=== PATIENT | female | born 1945 | race Caucasian/White ===

== ENCOUNTER → 2020-11-25 | Outpatient (CLI) | payer OTHER ==
[~2020-11-25] MED LIST: FUROSEMIDE 20 M20 MG PO; LISINOPRIL20 MG PO; MECLIZINE HCL25 M1 PO; MEDROLDOSEPACK PO; NEURONTIN100 MG PO; NORVASC 2.5 MG2.5 M1 PO; OXYBUTYNIN 5 MG5 M2 PO; PROBIOTIC1 EAC7 PO; TAPAZOLE5 MG PO; TRAMADOL 50 MG50 MG PO; XANAX 0.5 MG0.5 M1 PO; ZYRTEC10 M5 PO
== END ==
LOC: M.PC 11:34
PROVIDERS: ATTEND Anesthesiology Pain Medicine
DX: M54.5 Low back pain (principal); Z79.899 Other long term (current) drug therapy; Z88.2 Allergy status to sulfonamides; Z88.8 Allergy status to other drugs, medicaments and biological substances; Z98.890 Other specified postprocedural states